=== PATIENT | female | born 1990 | race Caucasian/White ===

== ENCOUNTER 2021-03-17 16:16 | Emergency (ER) | payer MEDICAID, SELFPAY ==
[~2021-03-17] VITALS: Ht 162.6 cm; Wt 87.1 kg
[2021-03-17 16:40] VITALS: BP_SYST 142
--- NOTE | 2021-03-17 16:40 | NUR ---
Patient to ER bed Tent 1 to gown for evaluation. Side rails up.
--- NOTE | 2021-03-17 16:42 | NUR ---
Pt brought by self , A&Ox4, pt presents to ER with cough/ congestion x 1 week, pt states she had 4 covid test and they were negative, skin pink and warm , respirations even and unlabored, cap refill <3, O2 98%.
[2021-03-17] MEDS ORDERED: LORATADINE 10 MG TABLET PO ONE (19:45)
[2021-03-17] MEDS ORDERED: IBUPROFEN 600 MG TABLET PO ONE (19:45)
[2021-03-17] MEDS ORDERED: BENZONATATE 100 MG CAPSULE (TESSALON) PO ONE (19:45)
--- NOTE | 2021-03-17 19:46 | NUR ---
ER Dr. CHANG at bedside examining patient.
[2021-03-17] MEDS ORDERED: BENZ150C4 PO (19:48)
[2021-03-17] MEDS ORDERED: DEC4 PO (19:48)
[2021-03-17] MEDS ORDERED: IBUP-1969 PO (19:48)
--- NOTE | 2021-03-17 19:50 | NUR ---
COVID PCR OBTAINED AND SENT TO LAB
[2021-03-17 20:00] VITALS: BP_SYST 132
--- NOTE | 2021-03-17 20:00 | NUR ---
Patient given written and verbal discharge instructions and verbalizes understanding. ER MD discussed with patient the results and treatment provided. Patient in stable condition. ID arm band removed. Rx of BENZONATE, DECARDRON, AND IBUPROFEN given. Patient educated on pain management and to follow up with PMD. Pain Scale 0/10 Opportunity for questions provided and answered. Medication side effect fact sheet provided.
== END 2021-03-17 20:00 | disposition home or self-care (01) ==
LOC: SED 16:16
DX: R05.1 Acute cough (principal); Z79.899 Other long term (current) drug therapy; Z20.822 Contact with and (suspected) exposure to COVID-19
CPT/HCPCS: 71045; 99284; U0003